=== PATIENT | female | born 1950 | race Caucasian/White ===

== ENCOUNTER 2020-11-14 01:10 | Emergency (ER) | payer MEDICARE, SELFPAY ==
[2020-11-14] VITALS (37 sets, daily range): BP systolic 99–132; BP diastolic 58–84; PULSE 60–80; RESP 10–20; TEMP 36.6; O2SAT 91–100
--- NOTE | ~2020-11-14 | CT_ITS ---
EXAMINATION: CTA chest PE abdomen pel EXAM DATE: 11/14/2020 02:03 INDICATION: Chest pain and shortness of breath. Abdominal pain. TECHNIQUE: Spiral CTA of the chest (pulmonary arteries) was performed with 100 cc Omnipaque 350 intr avenous contrast injection. Images were acquired during the pulmonary arterial phase. Coronal maxi mum intensity projection 3D-reconstructions were created by the technologist on dedicated workstation . Axial, coronal and sagittal reformatted images were reviewed. Spiral CT of the abdomen and pelvis was then performed with the same intravenous contrast injection. Axial, coronal and sagittal reform atted images were reviewed. The dose-length product (DLP) for this examination was 530.72 mGy-cm. T he exposure was tailored according to patient size (auto mA exposure control), and iterative reconst ruction (ASIR) was used as additional dose reduction technique. Comparison is made to prior examinati on from 06/09/2018. FINDINGS: CHEST: Pulmonary arteries are well opacified and without intraluminal filling defects. No thoracic aortic dissection. The lungs are clear. There are no pleural or pericardial effusions. Tracheob ronchial tree is patent. There is no mediastinal, hilar or axillary lymphadenopathy. There is no pneumothorax. Heart normal in size. No evidence of coronary arterial calcification. ABDOMEN PELVIS: The liver, spleen, adrenal glands and pancreas are unremarkable. The gallbladder is distended but otherwise unremarkable. There is no biliary duct dilation. Portal and splenic veins a re patent. Kidneys enhance symmetrically. There is no hydronephrosis. The uterus is unremarkable. The bladder is unremarkable. There is no retroperitoneal or pelvic lymphadenopathy. There is mi ld scattered arteriosclerotic disease. The appendix is normal. There is moderate-sized gastroesophageal hiatal hernia. There is moderate a mount of colonic stool. There is mild sigmoid colonic diverticulosis. There is no adjacent inflammat ory change to suggest diverticulitis. No free intraperitoneal gas. There are no osteoblastic or os teolytic lesions identified. IMPRESSION: 1. No acute chest, abdomen or pelvis findings. 2. Moderate-sized hiatal hernia. 3. Moderate colonic stool. Reviewed, dictated and finalized at [facility].
--- NOTE | 2020-11-14 01:12 | ECG_ITS ---
Measurements Intervals [place] Rate: 68 P: 29 MA: 158 QRS: -8 QRSD: 89 T: 48 QT: 412 QTc: 440 Interpretive Statements SINUS RHYTHM POSSIBLE LEFT ATRIAL ENLARGEMENT BASELINE ARTIFACT- I, II, III, AVR, AVL, AVF, V1-V6 BORDERLINE ECG Electronically Signed On 11-14-2020 7:06:20 CDT by Anoop Huggins D.O.
[2020-11-14 01:38] LABS: Basophils Percent Auto 0.5 % (0.2-1.2); Eosinophils Absolute Auto 0.1 K/mm3 (0-0.3); Hematocrit 40.8 % (37.0-47.0); Hemoglobin 14.1 g/dL (12.0-15.0); Immature Granulocyte Absolute 0.02 K/mm3 (0.00-0.031); Immature Granulocyte Percent A 0.3 % (0-0.5); Lymphocytes Absolute Auto 2.54 K/mm3 (0.9-3.2); Lymphocytes Percent Auto 43.3 % (18.3-44.2); Mean Corpuscular HGB Conc 34.6 g/dl (32-36); Mean Corpuscular Hemoglobin 33.5 pg (26-34); Mean Corpuscular Volume 96.9 fl (80-100); Mean Platelet Volume 9.5 fl (7.4-10.4); Monocytes Absolute Auto 0.5 K/mm3 (0.1-0.6); Neutrophils Absolute Auto 2.6 K/mm3 (1.3-6.7); Neutrophils Percent Auto 44.9 % (45.5-73.1); Platelet Count Result 280 k/mm3 (150-375); Red Blood Count 4.21 M/mm3 (4.2-5.4); Red Cell Distribution Width 11.4 % (11.5-14.5); White Blood Count 5.9 K/mm3 (4.5-10.0)
[2020-11-14 01:46] LABS: Anion Gap 8 mmol/L (8-16); Blood Urea Nitrogen 15 mg/dL (7-17); Calcium 9.9 mg/dL (8.4-10.2); Carbon Dioxide 26 mmol/L (22-30); Chloride 106 mmol/L (98-107); Estimated CRCL calculation 61 ml/min; Estimated Glomerular Filt Rate > 60; Glucose 112 mg/dL (65-105); Potassium 3.6 mmol/L (3.4-5.0); Sodium 140 mmol/L (137-145)
[2020-11-14] MEDS: ONDANSETRON INJ 4 MG/2 ML VIAL IV PUSH (01:49)
[2020-11-14] MEDS: MORPHINE SULFATE (*CRX) 4 MG/ML INJ IV PUSH (01:49)
[2020-11-14 01:50] LABS: INR 0.9; Partial Thromboplastin Time 22.9 SECONDS (22.3-36.8); Prothrombin Time 13.2 Seconds (11.1-14.7)
[2020-11-14] MEDS: SODIUM CHLORIDE 0.9% IV 1,000 ML 999 ML IV CONT (01:50)
[2020-11-14 01:58] LABS: Troponin I < 0.012 ng/mL (0.000-0.034)
[2020-11-14 02:02] LABS: Lactic Acid Reflex 2.4 mmol/L (0.7-2.1)
[2020-11-14 02:04] LABS: Alanine Aminotransferase 43 U/L (4-35); Albumin Level 4.5 g/dL (3.5-5.1); Alkaline Phosphatase 71 U/L (38-126); Aspartate Amino Transferase 131 U/L (14-36); Bilirubin,Total 0.6 mg/dL (0.2-1.3); Lipase 244 U/L (23-300)
[2020-11-14 02:35] LABS: Add Urine Microscopic? YES; Appearance Urine Clear (Clear); Bilirubin Urine Negative (Negative); Blood Urine Negative (Negative); Color Urine Straw (Yellow); Glucose Urine UA Negative (Negative); Ketones Urine Negative (Negative); Leukocyte Esterase Ur Trace LEU/UL (Negative); Nitrate Urine Negative (Negative); Protein Urine Negative (Negative); RBC Urine 0-2 /hpf (0-2); Urobilinogen Urine Negative mg/dL (<2.0); WBC Urine 0-3 /hpf
[2020-11-14 02:44] LABS: Specific Grav Ur 1.031 (1.001-1.035)
--- NOTE | 2020-11-14 02:44 | ED.GENADULT ---
HPI - General Adult General Chief complaint: Chest Pain Stated complaint: chest pain Time Seen by Provider: 11/14/20 01:31 History of Present Illness HPI narrative: Patient is 70-year-old female presents the emergency department with chief complaint of epigastric/chest discomfort. Patient reports that she started getting nauseated and had to vomit and had some discomfort in the lower chest and in the upper abdomen. Patient reports that it was not improved by anything nor is it worsened by anything. Patient denies fever denies chills patient reports that she felt a little short of breath after she had been vomiting. Related Data Allergies Allergy/AdvReac Type Severity Reaction Status Date / Time STEROID Allergy Unknown Unknown Uncoded 11/14/20 01:11 Review of Systems Review of Systems: Narrative: A 10 system review of systems was completed on the patient and is negative except for what is stated in the HPI. Nursing and ancillary documentation was reviewed. Exam Narrative: Exam Narrative: GENERAL: Well-appearing, well-nourished, and in no acute distress. HEAD: Normocephalic, atraumatic. EYES: PERRLA and EOMI. ENT: Nares clear, no rhinorrhea or epistaxis. Mucous membranes moist. NECK: Supple. CHEST: Clear to auscultation. No respiratory distress. HEART: Regular rate and rhythm. No murmur heard. Normal peripheral pulses. ABDOMEN: Soft, nontender, nondistended, normal active bowel sounds. EXTREMITIES: Normal range of motion. No edema. SKIN: Warm, dry, no rash. NEURO: No focal deficits. Alert and oriented x3. PSYCH: Normal mood and affect. Course Vital Signs Vital signs: Vital Signs Temperature 36.6 C 11/14/20 01:15 Pulse Rate 65 11/14/20 01:15 Respiratory Rate 20 11/14/20 01:15 Blood Pressure 123/78 11/14/20 01:15 Pulse Oximetry 100 11/14/20 01:15 Temperature 36.6 C 11/14/20 01:15 Pulse Rate 63 11/14/20 04:46 Respiratory Rate 15 11/14/20 04:32 Blood Pressure 100/71 11/14/20 04:46 Pulse Oximetry 100 11/14/20 04:46 Medical Decision Making Vital Signs Vital Signs: Vital Signs Temperature 36.6 C 11/14/20 01:15 Pulse Rate 65 11/14/20 01:15 Respiratory Rate 20 11/14/20 01:15 Blood Pressure 123/78 11/14/20 01:15 Pulse Oximetry 100 11/14/20 01:15 Temperature 36.6 C 11/14/20 01:15 Pulse Rate 63 11/14/20 04:46 Respiratory Rate 15 11/14/20 04:32 Blood Pressure 100/71 11/14/20 04:46 Pulse Oximetry 100 11/14/20 04:46 Lab Data Result diagrams: 11/14/20 01:29 11/14/20 01:29 Labs: Lab Results 11/14/20 11/14/20 11/14/20 Range/Units 01:29 01:29 01:29 WBC 5.9 (4.5-10.0) K/mm3 RBC 4.21 (4.2-5.4) M/mm3 Hgb 14.1 (12.0-15.0) g/dL Hct 40.8 (37.0-47.0) % MCV 96.9 (80-100) fl MCH 33.5 (26-34) pg MCHC 34.6 (32-36) g/dl RDW 11.4 L (11.5-14.5) % Plt Count 280 (150-375) k/mm3 MPV 9.5 (7.4-10.4) fl Immature Gran % (Auto) 0.3 (0-0.5) % Neut % (Auto) 44.9 L (45.5-73.1) % Lymph % (Auto) 43.3 (18.3-44.2) % [place] % (Auto) 9.0 H (2.6-8.5) % Eos % (Auto) 2.0 (0-4.4) % Baso % (Auto) 0.5 (0.2-1.2) % Lymph # (Auto) 2.54 (0.9-3.2) K/mm3 [place] # (Auto) 0.5 (0.1-0.6) K/mm3 Eos # (Auto) 0.1 (0-0.3) K/mm3 Baso # (Auto) 0.0 (0.0-0.1) K/mm3 Abs Immat Gran (auto) 0.02 (0.00-0.031) K/mm3 Absolute Neuts (auto) 2.6 (1.3-6.7) K/mm3 Absolute Nucleated RBC 0.0 (0.0-0.012) K/mm3 Nucleated RBC % 0.0 (0.0-0.2) % PT 13.2 (11.1-14.7) Seconds INR 0.9 APTT 22.9 (22.3-36.8) SECONDS Sodium 140 (137-145) mmol/L Potassium 3.6 (3.4-5.0) mmol/L Chloride 106 (98-107) mmol/L Carbon Dioxide 26 (22-30) mmol/L Anion Gap 8 (8-16) mmol/L BUN 15 (7-17) mg/dL Creatinine 0.60 L (0.7-1.0) mg/dL Estim Creat Clear Calc 61 ml/min Estimated GFR > 60 (59 - ) Glucose 112 H (65-105) mg/dL
--- NOTE | 2020-11-14 02:44 | PC.NURSE ---
Pt reports feeling much better. No new s/s. Son at bedside.
[2020-11-14 04:51] LABS: Reflex Lactic Acid Yes or No Add Lactic
[2020-11-14 05:17] LABS: Troponin I < 0.012 ng/mL (0.000-0.034)
[2020-11-14 05:29] LABS: Lactic Acid 1.3 mmol/L (0.7-2.1)
== END 2020-11-14 05:52 | disposition home or self-care (01) ==
PROVIDERS: Emergency Provider Emergency Medicine; PCP Internal Medicine
DX: R07.89 Other chest pain (principal); R10.13 Epigastric pain; R11.2 Nausea with vomiting, unspecified
CPT/HCPCS: 36415; 71275; 74177; 80048; 80076; 81001; 83605; 83690; 84484; 85025; 85610; 85730; 93005; 96361; 96374; 96375; 99284; J2270; J2405; J7030; Q9967

== ENCOUNTER 2021-11-10 10:30 | Emergency (ER) | payer MEDICARE, SELFPAY ==
--- NOTE | ~2021-11-10 | CT_ITS ---
EXAMINATION: CT abdomen pelvis wo con DATE: 11/10/2021 11:25 INDICATION: Left flank pain. History of kidney stones. TECHNIQUE: Computed tomography (CT) of the abdomen and pelvis was performed without intravenous contr ast. Automated exposure control and iterative reconstruction technique were employed. Exam dose: 297 .91 mGy-cm total exam DLP. COMPARISON: 11/14/2020 CTA of chest abdomen and pelvis FINDINGS: No infiltrate or atelectasis at the lung bases. Cardiomegaly. Moderately large hiatal hernia. Status post cholecystectomy. The liver, spleen, pancreas, and adrenal glands and lower pole is unremarkable Approximately 2.5 mm nonobstructing lower pole left renal calculus. No ureteral calculus or urinary t ract obstruction is noted. The urinary bladder is unremarkable. 9 mm and 2 mm calcified uterine fibroids. The uterus and adnexal areas are otherwise unremarkable. Diverticulosis of the colon, involving primarily the sigmoid area; no CT evidence of diverticulitis. No bowel obstruction, bowel wall thickening, pneumatosis or intraperitoneal free air is detected. Normal caliber of the abdominal aorta mild atherosclerotic calcification. No intraperitoneal or retro peritoneal or pelvic mass lesion or adenopathy or ascites. Small fat-containing umbilical hernia. Diffuse idiopathic skeletal hyperostosis of the lower thoracic spine. Multilevel degenerative disc disease, including severe degenerative disc disease at L2-3, moderately severe degenerative disc disease at L3-4 and L4-5. There is degenerative change at the apophyseal nuvia nts associated grade 1 anterolisthesis at L4-5. IMPRESSION: No ureteral calculus or urinary tract obstruction Calcified uterine fibroids Diverticulosis of the colon Moderately large hiatal hernia Cardiac megaly Status post cholecystectomy Reviewed, dictated and finalized at [facility]. Reviewed, dictated and finalized at [facility].
[2021-11-10 10:36] VITALS: BP 132/80; PULSE 77; RESP 18; TEMP 37; O2SAT 100
[2021-11-10 10:58] LABS: Basophils Absolute Auto 0.1 K/mm3 (0.0-0.1); Basophils Percent Auto 1.1 % (0.2-1.2); Eosinophils Absolute Auto 0.1 K/mm3 (0-0.3); Eosinophils Percent Auto 2.8 % (0-4.4); Hematocrit 42.7 % (37.0-47.0); Hemoglobin 14.4 g/dL (12.0-15.0); Immature Granulocyte Absolute 0.01 K/mm3 (0.00-0.031); Immature Granulocyte Percent A 0.2 % (0-0.5); Lymphocytes Absolute Auto 1.49 K/mm3 (0.9-3.2); Lymphocytes Percent Auto 34.3 % (18.3-44.2); Mean Corpuscular HGB Conc 33.7 g/dl (32-36); Mean Corpuscular Hemoglobin 33.7 pg (26-34); Mean Platelet Volume 9.7 fl (7.4-10.4); Monocytes Absolute Auto 0.5 K/mm3 (0.1-0.6); Monocytes Percent Auto 10.6 % (2.6-8.5); Neutrophils Absolute Auto 2.2 K/mm3 (1.3-6.7); Platelet Count Result 284 k/mm3 (150-375); Red Blood Count 4.27 M/mm3 (4.2-5.4); Red Cell Distribution Width 11.8 % (11.5-14.5); White Blood Count 4.4 K/mm3 (4.5-10.0)
[2021-11-10 11:00] LABS: Add Urine Microscopic? YES; Appearance Urine Cloudy (Clear); Bilirubin Urine Negative (Negative); Blood Urine Negative (Negative); Color Urine Amber (Yellow); Glucose Urine UA Negative (Negative); Ketones Urine Negative (Negative); Leukocyte Esterase Ur Negative LEU/UL (Negative); Mucus Urine Rare /lpf; Nitrate Urine Negative (Negative); Protein Urine Negative (Negative); RBC Urine 0-2 /hpf (0-2); Specific Grav Ur 1.016 (1.001-1.035); Squamous Epithelial Cell Urine Rare /hpf (Few); Urobilinogen Urine Negative mg/dL (<2.0); WBC Urine 0-3 /hpf
[2021-11-10 11:07] LABS: Alanine Aminotransferase 14 U/L (4-35); Albumin Level 4.6 g/dL (3.5-5.1); Alkaline Phosphatase 76 U/L (38-126); Anion Gap 9 mmol/L (8-16); Aspartate Amino Transferase 26 U/L (14-36); Bilirubin,Total 0.5 mg/dL (0.2-1.3); Blood Urea Nitrogen 16 mg/dL (7-17); Calcium 9.1 mg/dL (8.4-10.2); Carbon Dioxide 23 mmol/L (22-30); Chloride 106 mmol/L (98-107); Estimated CRCL calculation 58 ml/min; Estimated Glomerular Filt Rate > 60; Glucose 102 mg/dL (65-110); Lipase 171 U/L (23-300); Sodium 138 mmol/L (137-145)
--- NOTE | 2021-11-10 11:13 | ED.ABDPAIN ---
HPI - Abdominal Pain General Chief Complaint: Abdominal Pain Stated Complaint: Left Flank Pain Time Seen by Provider: 11/10/21 10:31 Source: patient and RN notes reviewed Mode of arrival: ambulatory History of Present Illness HPI narrative: 71-year-old female with history of kidney stones and diverticulitis presenting to the emergency department for evaluation of left flank pain. Patient states she did have a brief episode of left flank pain yesterday that lasted approximately 15 minutes. Patient describes the pain as being in her left flank and radiating around to her left lower abdomen. Patient states the pain resolved yesterday but then she had a recurrence of the pain at approximately 9 AM. Patient does report having some diarrhea a few days ago. Patient also does describe having some increased urinary frequency but denies any pain with urination. Patient does have follow-up with Dr. Sherman at [facility]. Patient did have a cholecystectomy at [facility] in February 2021 Related Data Allergies Allergy/AdvReac Type Severity Reaction Status Date / Time methylprednisolone AdvReac Unknown Verified 11/10/21 10:49 Review of Systems Review of Systems: CONSTITUTIONAL: Denies fever, chills, or sweats. EYES: Denies visual changes, redness, or discharge. ENT: Denies rhinorrhea, congestion, sore throat, or otalgia. CARDIOVASCULAR: Denies chest pain, palpitations, or edema. RESPIRATORY: Denies cough or dyspnea. GASTROINTESTINAL: See HPI GENITOURINARY: See HPI SKIN: Denies rash or itching. MUSCULOSKELETAL: Denies back pain, joint pain, or myalgia. NEUROLOGIC: Denies headache, numbness, or weakness. Exam Narrative: APPEARANCE: Well appearing, no pain, no distress, well-nourished. HEAD: normocephalic, atraumatic. EYES: PERRLA/EOMI, conjunctivae clear. NOSE: Normal no drainage NECK: Supple. No adenopathy, no masses. RESPIRATORY: Airway patent, respirations nonlabored. Clear to auscultation bilaterally, no rales, rhonchi, wheezing. CARDIOVASCULAR: Regular rate and rhythm without murmurs rubs or gallops. ABDOMINAL: Soft, nontender, nondistended, normal bowel sounds. Mild bilateral CVA tenderness to palpation. No left lower quadrant tenderness to even deep palpation. MUSCULOSKELETAL: Moves all extremities. Strength/ROM intact, No edema, No calf tenderness. NEURO: Alert. Cranial nerves II through XII intact. Grossly intact SKIN: Warm, dry. Normal Color Course Course Emergency Course: CT was negative for acute abnormality to explain the patient's symptoms. UA showed no evidence of urinary tract infection. No leukocytosis. Patient was updated on the results of the work-up and reasons to return to the emergency department. Vital Signs Vital signs: Vital Signs Temperature 98.6 F 11/10/21 10:36 Pulse Rate 77 11/10/21 10:36 Respiratory Rate 18 11/10/21 10:36 Blood Pressure 132/80 11/10/21 10:36 Pulse Oximetry 100 11/10/21 10:36 Temperature 98.6 F 11/10/21 10:36 Pulse Rate 69 11/10/21 12:29 Respiratory Rate 17 11/10/21 12:29 Blood Pressure 130/73 11/10/21 12:29 Pulse Oximetry 100 11/10/21 12:29 MDM - Abdominal Pain Differential Diagnosis Differential diagnosis: Likely abdominal pain Lab Data Attestation: I reviewed the patient's lab results. Result diagrams: 11/10/21 10:50 11/10/21 10:50 Labs: Lab Results 11/10/21 11/10/21 11/10/21 Range/Units 10:50 10:50 10:50 WBC 4.4 L (4.5-10.0) K/mm3 RBC 4.27 (4.2-5.4) M/mm3 Hgb 14.4 (12.0-15.0) g/dL Hct 42.7 (37.0-47.0) % MCV 100.0 (80-100) fl MCH 33.7 (26-34) pg MCHC 33.7 (32-36) g/dl RDW 11.8 (11.5-14.5) % Plt Count 284 (150-375) k/mm3 MPV 9.7 (7.4-10.4) fl Immature Gran % (Auto) 0.2 (0-0.5) % Neut % (Auto) 51.0 (45.5-73.1) % Lymph % (Auto) 34.3 (18.3-44.2) % [place] % (Auto) 10.6 H (2.6-8.5) % Eos % (Auto) 2.8 (0-4.4) % Baso % (Auto) 1.1 (0.2-1.2) % Ly
[2021-11-10 12:02] VITALS: PULSE 64; RESP 18; O2SAT 100
[2021-11-10 12:29] VITALS: BP 130/73; PULSE 69; RESP 17; O2SAT 100
== END 2021-11-10 12:33 | disposition home or self-care (01) ==
PROVIDERS: Emergency Provider Emergency Medicine
DX: R10.9 Unspecified abdominal pain (principal); Z87.442 Personal history of urinary calculi; Z87.19 Personal history of other diseases of the digestive system; Z90.49 Acquired absence of other specified parts of digestive tract
CPT/HCPCS: 36415; 74176; 80053; 81001; 83690; 85025; 87086; 99284